=== PATIENT | female | born 2000 | race Caucasian/White ===

== ENCOUNTER 2022-08-22 11:45 | Outpatient (CLI) | payer BC, SELFPAY ==
--- NOTE | 2022-08-22 12:15 | CRLHL7_ITS ---
For Patients: As a result of the Century Cures Act, medical imaging exams and procedure reports are released immediately into your electronic medical record. You may view this report before your referring provider. If you have questions, please contact your health care provider. INDICATION: First trimester scan, establish dates. COMPARISON: None. TECHNIQUE: Real-time soto-scale imaging of the pelvis was performed. FINDINGS: Sonographic imaging demonstrates a single living intrauterine gestation. The embryo demonstrates a regular cardiac rate measuring 154 beats per minute. The embryo`s crown-rump length measurement of 1.3 cm corresponds to a gestational age of 7 weeks 4 days with a sonographic due date of April 06, 2023. There is a normal-appearing yolk sac measuring 2.6 mm. There are no gross abnormalities noted within the embryo at this early state of development. The placenta has not yet developed. The gestational sac has a normal appearance. Small subchorionic perigestational hemorrhage measuring 15 x 3 x 11 mm toward the left of midline. The amount of fluid within the sac appears appropriate for gestational age. The cervix is closed. The myometrium appears normal. The ovaries are of normal size. The right ovary measures 3.5 x 1.6 x 2.2 cm. The left ovary measures 4.3 x 2.7 x 3.5 cm. Small corpus luteum cyst of on the left measuring 3.1 x 2.5 x 3.1 cm there are no suspicious fluid collections noted in the cul-de-sac. IMPRESSION: Normal first trimester OB ultrasound exam. Gestational age calculated at 7 weeks 4 days with a sonographic due date of April 06, 2023. Small subchorionic hemorrhage toward the left of midline. Dictated by Salomon Quinn MD @ 08/22/2022 1:21:02 PM (Electronically Signed)
== END 2022-08-22 11:46 | disposition home or self-care (01) ==
LOC: US 11:45
PROVIDERS: PCP Advanced Practice Midwife; Visit Provider Advanced Practice Midwife
DX: Z34.91 Encounter for supervision of normal pregnancy, unspecified, first trimester (principal); O20.9 Hemorrhage in early pregnancy, unspecified; Z3A.01 Less than 8 weeks gestation of pregnancy
CPT/HCPCS: 76817; 84443; 86592; 86703; 86762; 86787; 86803; 86850; 86900; 86901; 87086; 87340

== ENCOUNTER 2022-11-14 12:37 | Outpatient (CLI) | payer BC, SELFPAY ==
--- NOTE | 2022-11-14 13:00 | CRLHL7_ITS ---
For Patients: As a result of the Century Cures Act, medical imaging exams and procedure reports are released immediately into your electronic medical record. You may view this report before your referring provider. If you have questions, please contact your health care provider. OB ULTRASOUND CLINICAL HISTORY: anatomy survey. THAD by LMP: 04/03/2023. GA: 20 w, 0 d. INDICATION: anatomy survey. FINDINGS: position: Vertex. Cervix: Visualized. Technique: Transabdominal. Length of closed cervix: 3.2 cm. Amniotic Fluid: 4.7 cm SDP (greater than/equal to: 2- less than 8 cm). SURVEY: Observed Structures Calvarium/Spine: Cerebellum: 2.0 cm, 20 w 2 d. Cisterna Magna: 6.9 mm. Nuchal Fold: 4.0 mm. Lateral Ventricle: 6.4 mm. CSP: Yes. Midline Falx: Yes. Choroid Plexus: Yes. Spine: Yes. Abdomen: Stomach: Yes. Abd Cord Insertion: Yes. Urinary Bladder: Yes. Kidneys: Yes. Diaphragm: Yes. Face: Nose/lips: Yes. Orbital view: Yes. Limbs: Upper Extremities: Yes. Lower Extremities: Yes. Hands: Yes. Feet: Yes. Vascular: Four-Chamber Heart: Yes. LVOT: Yes. RVOT: Yes. 3VV: Yes. 3VTV: Yes. BPD: 4.8 cm. 20 w 3 d, 66 percent. HC: 17.4 cm. 19 w 6 d, 39 percent. AC: 15.0 cm. 20 w 2 d, 53 percent. FL: 3.1 cm. 19 w 4 d, 29 percent. FL/AC: 20.7 percent. HC/AC Ratio: 1.16. Heart rate: 141 beats per minute. age by this US: 20 w 1 d. THAD by this US: 04/02/2023. EFW: 324 g. Weight: 0 lbs, 11 oz. Percentile by THAD: 44 percent. IMPRESSION: Single live intrauterine gestation. No gross anomalies visualized. profile is poorly seen. Zo Mcarthur M.D. Diagnostic/Breast Radiologist [employer] [email or web address] Transcribed: 11:34 am DW/Dictated by: Zo Mcarthur MD @ 11/15/2022 4:52:00 AM (Electronically Signed)
== END 2022-11-14 12:38 | disposition home or self-care (01) ==
LOC: US 12:37
PROVIDERS: Visit Provider Advanced Practice Midwife
DX: Z34.92 Encounter for supervision of normal pregnancy, unspecified, second trimester (principal); Z3A.20 20 weeks gestation of pregnancy
CPT/HCPCS: 76805

== ENCOUNTER 2022-11-21 10:43 | Outpatient (CLI) | payer BC, SELFPAY ==
--- NOTE | 2022-11-21 11:00 | CRLHL7_ITS ---
For Patients: As a result of the Century Cures Act, medical imaging exams and procedure reports are released immediately into your electronic medical record. You may view this report before your referring provider. If you have questions, please contact your health care provider. INDICATION: Follow-up profile COMPARISON: 11/14/2022 TECHNIQUE: Real-time soto-scale imaging of the pelvis was performed. FINDINGS: profile and longitudinal spine appear normal. heart rate 144 beats per minute. Single deepest pocket amniotic fluid 6.8 cm. Vertex position. IMPRESSION: Normal profile. Dictated by Avtar Saldivar MD @ 11/21/2022 12:07:43 PM (Electronically Signed)
== END 2022-11-21 10:44 | disposition home or self-care (01) ==
LOC: US 10:43
PROVIDERS: Visit Provider Advanced Practice Midwife
DX: Z34.90 Encounter for supervision of normal pregnancy, unspecified, unspecified trimester (principal); Z36.2 Encounter for other antenatal screening follow-up
CPT/HCPCS: 76816

== ENCOUNTER 2023-01-09 08:31 | Outpatient (CLI) | payer BC, SELFPAY | END 2023-01-09 08:32 | disposition home or self-care (01) | LOC: NFLDREF 08:32 | PROVIDERS: Visit Provider Advanced Practice Midwife | DX: Z34.93 Encounter for supervision of normal pregnancy, unspecified, third trimester (principal); Z3A.28 28 weeks gestation of pregnancy | CPT/HCPCS: 86592; 86850; J2791 ==

== ENCOUNTER 2023-01-16 07:44 | Outpatient (CLI) | payer BC, SELFPAY | END 2023-01-16 07:45 | disposition home or self-care (01) | PROVIDERS: Visit Provider Advanced Practice Midwife | DX: Z34.93 Encounter for supervision of normal pregnancy, unspecified, third trimester (principal); R73.09 Other abnormal glucose | CPT/HCPCS: 82951; 82952 ==

== ENCOUNTER 2023-02-09 16:56 | Outpatient (CLI) | payer BC, SELFPAY ==
[2023-02-09] VITALS (10 sets, daily range): BP systolic 120–134; BP diastolic 77–83; PULSE 93–120; TEMP 36.6–36.7; O2SAT 98–99
[2023-02-09 17:18] LABS: Appearance Urine Cloudy (Clear); Bilirubin Urine Negative (Negative); Blood Urine Trace-intact (Negative); Color Urine Yellow (Yellow); Glucose Urine Negative (Negative); Ketones Urine Negative (Negative); Leukocyte Esterase Urine 3+ (Negative); Nitrite Urine Negative (Negative); Protein Urine Negative (Negative); Specific Gravity Urine 1.015 (1.000-1.030); Urobilinogen Urine 0.2 (0.2-1.0); pH Urine 7.5 (5.0-8.5)
--- NOTE | 2023-02-09 18:06 | PM.OBLDTN ---
OB - Triage/Final Diagnosis Visit Information Date Seen: 02/09/23 Narrative: The patient is a 22 year old 1 para 0 at 32.3 weeks gestation by LMP, who presents with lower abdomen cramping since yesterday evening not improved with rest, hydration or position changes. She denies UTI symptoms or leaking fluid and is appreciating good movement. Upon cervical exam she was found to be 1cm/20/-3. Plan to recheck cervix in 2-3 hours for cervical exam. Waiting on UA results. No discharge noted with exam and she denies any unusual discharge. Reason for evaluation: threatened labor Evaluation Cervical dilation (cm): 1 Cervical effacement (%): 20 Laboratory results: Laboratory Tests 02/09/23 Range/Units 17:09 Urine Color Yellow (Yellow) Urine Appearance Cloudy A (Clear) Urine pH 7.5 (5.0-8.5) Ur Specific [place] 1.015 (1.000-1.030) Urine Protein Negative (Negative) Urine Glucose (UA) Negative (Negative) Urine Ketones Negative (Negative) Urine Blood Trace-intact A (Negative) Urine Nitrite Negative (Negative) Urine Bilirubin Negative (Negative) Urine Urobilinogen 0.2 (0.2-1.0) Ur Leukocyte Esterase 3+ A (Negative) Urine RBC Pending Urine WBC Pending Ur Squamous Epith Cells Pending Urine Bacteria Pending Vital signs: Vital Signs - 24 hr 02/09/23 17:19 02/09/23 17:20 Pulse Rate 93 Blood Pressure 127/77 Pulse Oximetry 99 Fetus (Single) Heart Rate Baseline: 135 Orthotic Practitioner Variability: Moderate (6-25) Monitor Accelerations: Present Monitor Decelerations: None Station: -3 Final Diagnosis (1) Risk of labor in third trimester: Status: Acute (2) Supervision of normal first : Status: Acute
[2023-02-09 18:17] LABS: Squamous Epithelial Cell Urine Moderate (None-Few); WBC Clumps Urine Few
[2023-02-09 18:18] LABS: Amorphous Sediment Urine Few; Bacteria Urine Many; Coarse Granular Casts Urine Few
[2023-02-09 20:12] LABS: Clue Cells >20% Clue Cells Seen (None Seen); Trichomonas No Trichomonas Seen (None Seen); Yeast Yeast Seen (None Seen)
[2023-02-09] MEDS: NIFEdipine 10 MG CAPSULE PO ×3 (20:36→21:06)
[2023-02-09] MEDS: BETAMETHASONE SOD PHOS/ACETATE 6 MG/ML ML 12 MG IM (20:44)
[2023-02-10 00:43] VITALS: PULSE 101; O2SAT 96
[2023-02-10] MEDS: metroNIDAZOLE 500 MG TABLET PO (01:10)
--- NOTE | 2023-02-10 01:55 | PC.OBNST ---
NST Note NST Note Start: 02/09/23 17:09 Freq: ONCE Status: Active Protocol: Document 02/10/23 01:05 CHASIDY (Rec: 02/10/23 01:55 CHASIDY [id number]) NST Note 1 Para (# of births) 0 EDC 04/03/23 Gestational Age In Weeks & Days 32 Weeks & 4 Days Patient Presented with Complaint(s) of Contractions/cramping Other Complaints Patient complained of cramping with contractions. Contractions stopped after nifedipine and rest. She is positive for BV and Yeast Reactive Yes Appropriate for Gestational Age Yes RN Kandi Mercado, RN Date 02/10/23 Reactive Yes Appropriate for Gestational Age Yes JOSE DANIEL Grant, JOSE DANIEL Date 02/10/23 OB NST charge Yes Complete NST Note via Write Note Yes The provider's electronic signature indicates the NST is reactive/appropriate for gestational age. *Note to provider: If an addendum is required, open the patient's chart and click on the note under the Nurse/Allied Health tab.
--- NOTE | 2023-02-10 02:10 | PM.OBLDTN ---
OB - Triage/Final Diagnosis Visit Information Date of evaluation: 02/10/23 Narrative: Goldie feels cramping has now decreased and she only feels some cramping when getting up to the bathroom. She denies any bleeding, leaking of fluid and baby is moving well. Reason for evaluation: threatened labor Comments/Additional reasons for admission: Discussed with patient discharging home with follow up this week in clinic. Will not recheck cervix as contractions have slowed and she is less painful. Reviewed signs and symptoms to report or return for, she verbalized understanding. Will start treatment for BV before discharge and send Rx to pharmacy for further dose. Rx also sent for yeast. Pt agrees to the plan. Evaluation Laboratory results: Laboratory Tests 02/09/23 02/09/23 Range/Units 19:42 17:09 Urine Color Yellow (Yellow) Urine Appearance Cloudy A (Clear) Urine pH 7.5 (5.0-8.5) Ur Specific [place] 1.015 (1.000-1.030) Urine Protein Negative (Negative) Urine Glucose (UA) Negative (Negative) Urine Ketones Negative (Negative) Urine Blood Trace-intact A (Negative) Urine Nitrite Negative (Negative) Urine Bilirubin Negative (Negative) Urine Urobilinogen 0.2 (0.2-1.0) Ur Leukocyte Esterase 3+ A (Negative) Urine RBC 5-10 A (0-2) Urine WBC 10-25 A (0-5) Urine WBC Clumps Few A (None) Ur Squamous Epith Cells Moderate A (None-Few) Amorphous Sediment Few A (None) Urine Bacteria Many A (None) Coarse Granular Casts Few A (None) Vaginal Trichomonas No Trichomonas Seen (None Seen) Vaginal Yeast Yeast Seen (None Seen) Vaginal Clue Cells >20% Clue Cells Seen (None Seen) Group B Strep DNA Pending Vital signs: Vital Signs - 24 hr 02/09/23 17:19 02/09/23 17:20 02/09/23 17:20 Temperature 98.1 F Pulse Rate 93 Blood Pressure 127/77 Pulse Oximetry 99 02/09/23 18:30 02/09/23 18:54 02/09/23 18:56 Temperature 98 F Pulse Rate 100 Blood Pressure 124/80 Pulse Oximetry 98 02/09/23 19:05 02/09/23 19:15 02/09/23 20:50 Temperature Pulse Rate 101 H 120 H 108 H Blood Pressure 120/78 123/82 134/81 Pulse Oximetry 02/09/23 21:08 02/09/23 22:13 02/10/23 00:43 Temperature Pulse Rate 109 H 112 H Blood Pressure 134/83 128/77 Pulse Oximetry 96 Fetus (Single) Heart Rate Baseline: 135 Monitor Accelerations: Present Monitor Decelerations: None Station: -3 Final Diagnosis (1) Risk of labor in third trimester: Status: Acute (2) Supervision of normal first : Status: Acute
[2023-02-10 15:18] LABS: Strep B DNA Probe Negative (Negative); Strep B Susceptibility Needed? No
== END 2023-02-10 01:10 | disposition home or self-care (01) ==
LOC: OB 02-10 00:55 → OB OUT 02-10 15:37
PROVIDERS: Visit Provider Advanced Practice Midwife
DX: O47.03 False labor before 37 completed weeks of gestation, third trimester (principal); Z3A.33 33 weeks gestation of pregnancy
CPT/HCPCS: 59025; 81003; 81015; 87081; 87086; 87210; 87653; 99213; A9270; J0702

== ENCOUNTER 2023-02-17 15:23 | Outpatient (CLI) | payer BC, SELFPAY ==
[2023-02-17] VITALS (21 sets, daily range): BP systolic 126–132; BP diastolic 75–88; PULSE 96–134; RESP 18; TEMP 37.3; O2SAT 96–99
[2023-02-17 16:02] LABS: Appearance Urine Slightly Cloudy (Clear); Bilirubin Urine Negative (Negative); Blood Urine Negative (Negative); Color Urine Yellow (Yellow); Glucose Urine Negative (Negative); Ketones Urine Negative (Negative); Leukocyte Esterase Urine 1+ (Negative); Nitrite Urine Negative (Negative); Protein Urine Negative (Negative); Urobilinogen Urine 0.2 (0.2-1.0)
[2023-02-17 16:20] LABS: Bacteria Urine Few; RBC Urine 0-2 (0-2); Squamous Epithelial Cell Urine Few (None-Few)
--- NOTE | 2023-02-17 16:47 | P.OBLDTN_ITS ---
OB - Triage/Final Diagnosis Visit Information Date Seen: 02/17/23 Date of evaluation: 02/17/23 Narrative: The patient is a 22 year old 1 para 0 at 33.4 weeks gestation by LMP, who presents with pink tinged discharge and cramping. Goldie was seen in triage last week for uterine cramping. At that time she was found to have yeast and clue cells by wet prep. She did also have mixed guerrero in a UC. She was treated with metronidazole and Monistat cream. She finish both of these therapies this morning. Yesterday she did have pink discharge times one without cramping. Today she had a repeat of this pink discharge and did start to have some cramping and back pain. When she presented she did have uterine irritability with a reactive tracing. A UA, fFn, and wet prep were collected. She did have a vaginal dose of Monistat this morning so the FFn will likely not be accurate. Her cervix was reexamined and found to be unchanged which is reassuring. There was a trace amount of brown discharge on the vaginal swab but none on the examining glove. No obvious discharge or fluids were noted on examination. I did consult with Dr. Davis and she recommended a dose of Nifedipine 10mg x1 for a tocolytic. Can consider sending a prescription for 10-20mg Q6hr PRN if necessary. We discussed that the plan of care may change if any of the labs are positive and that an underlying cause can be identified and treated. She is agreeable to this plan and questions were answered. Evaluation Cervical dilation (cm): 1 Cervical effacement (%): 30 Laboratory results: Laboratory Tests 02/17/23 Range/Units 15:50 Urine Color Yellow (Yellow) Urine Appearance Slightly Cloudy A (Clear) Urine pH 7.0 (5.0-8.5) Ur Specific [place] 1.020 (1.000-1.030) Urine Protein Negative (Negative) Urine Glucose (UA) Negative (Negative) Urine Ketones Negative (Negative) Urine Blood Negative (Negative) Urine Nitrite Negative (Negative) Urine Bilirubin Negative (Negative) Urine Urobilinogen 0.2 (0.2-1.0) Ur Leukocyte Esterase 1+ A (Negative) Urine RBC 0-2 (0-2) Urine WBC 2-5 (0-5) Ur Squamous Epith Cells Few (None-Few) Urine Bacteria Few A (None) Vital signs: Vital Signs - 24 hr 02/17/23 15:49 02/17/23 15:49 02/17/23 15:52 Temperature 99.1 F Pulse Rate 116 H Respiratory Rate 18 Blood Pressure 131/81 Pulse Oximetry 97 02/17/23 15:57 02/17/23 16:02 02/17/23 16:07 Temperature Pulse Rate Respiratory Rate Blood Pressure Pulse Oximetry 97 97 97 02/17/23 16:12 02/17/23 16:17 02/17/23 16:22 Temperature Pulse Rate Respiratory Rate Blood Pressure Pulse Oximetry 96 96 97 02/17/23 16:27 02/17/23 16:32 Temperature Pulse Rate Respiratory Rate Blood Pressure Pulse Oximetry 96 97 Fetus (Single) Heart Rate Baseline: 135 Kitchen Assistant Variability: Moderate (6-25) Monitor Accelerations: Present Monitor Decelerations: None Station: -3 Final Diagnosis (1) Uterine irritability: Status: Acute (2) Supervision of normal first : Status: Acute
[2023-02-17] MEDS: NIFEdipine 10 MG CAPSULE PO ×2 (16:55→17:45)
[2023-02-17 17:01] LABS: Clue Cells <20% Clue Cells Seen (None Seen); Trichomonas No Trichomonas Seen (None Seen); Yeast No Yeast Seen (None Seen)
[2023-02-17 17:21] LABS: Fetal Fibronectin* POSITIVE (Negative)
--- NOTE | 2023-02-17 18:18 | PC.NURSE ---
Patient presented to [facility] with complaints of light pink bleeding noted on toilet paper at home once on 02/16/23, and once today (02/17/23). Patient is 33.4 weeks gestation. Patient was seen last week and treated for Bacterial Vaginosis and vaginal yeast. Patient reports she completed her Metronidazole therapy this morning. Patient reports she first saw some light pink discharge on the toilet paper when wiping after voiding yesterday. Patient states she did not experience this again and thought to just watch it. Patient reports this happened again early this afternoon with light pink noted on the toilet paper when wiping. Patient denies bright red bleeding, leaking of fluids, or other vaginal discharge. Patient endorses normal movement. Patient does report feelings of constant cramping. UA with reflex was sent to lab. Provider ([facility] [place]) assessed patient at bedside and obtained FFN and Wet-Prep. Orders to administer Nifedipine for uterine irritability. Ongoing and maternal assessment until discharge from triage. JOSE DANIEL Ackerman 02/17/2023@1824.
--- NOTE | 2023-02-17 19:57 | P.OBLDTN_ITS ---
OB - Triage/Final Diagnosis Visit Information Date Seen: 02/17/23 Narrative: Goldie received 2 doses of Nifedipine. They did not seem to make a difference in her contractions or irritability. She denies a change in frequency or intensity of what she is feeling. A SVE was performed with informed consent and she was unchanged from her earlier exam. She was offered a IV fluid bolus but after a failed IV insertion attempt she opted for increasing oral hydration instead. Given her unchanged cervical exam a decision was made to discharge home and detailed labor instructions were reviewed. She has a regularly scheduled appointment in the clinic on Thursday of this week. A PRN prescription of Nifedipine was sent. Evaluation Cervical dilation (cm): 1 Cervical effacement (%): 30 Laboratory results: Laboratory Tests 02/17/23 02/17/23 Range/Units 16:47 15:50 Urine Color Yellow (Yellow) Urine Appearance Slightly Cloudy A (Clear) Urine pH 7.0 (5.0-8.5) Ur Specific [place] 1.020 (1.000-1.030) Urine Protein Negative (Negative) Urine Glucose (UA) Negative (Negative) Urine Ketones Negative (Negative) Urine Blood Negative (Negative) Urine Nitrite Negative (Negative) Urine Bilirubin Negative (Negative) Urine Urobilinogen 0.2 (0.2-1.0) Ur Leukocyte Esterase 1+ A (Negative) Urine RBC 0-2 (0-2) Urine WBC 2-5 (0-5) Ur Squamous Epith Cells Few (None-Few) Urine Bacteria Few A (None) Vaginal Trichomonas No Trichomonas Seen (None Seen) Vaginal Yeast No Yeast Seen (None Seen) Vaginal Clue Cells <20% Clue Cells Seen (None Seen) Fibronectin POSITIVE (Negative) Vital signs: Vital Signs - 24 hr 02/17/23 15:49 02/17/23 15:49 02/17/23 15:52 Temperature 99.1 F Pulse Rate 116 H Respiratory Rate 18 Blood Pressure 131/81 Pulse Oximetry 97 02/17/23 15:57 02/17/23 16:02 02/17/23 16:07 Temperature Pulse Rate Respiratory Rate Blood Pressure Pulse Oximetry 97 97 97 02/17/23 16:12 02/17/23 16:17 02/17/23 16:22 Temperature Pulse Rate Respiratory Rate Blood Pressure Pulse Oximetry 96 96 97 02/17/23 16:27 02/17/23 16:32 02/17/23 16:56 Temperature Pulse Rate 99 Respiratory Rate Blood Pressure 126/75 Pulse Oximetry 96 97 02/17/23 17:41 02/17/23 19:21 02/17/23 19:22 Temperature Pulse Rate 96 111 H Respiratory Rate Blood Pressure 131/77 132/88 Pulse Oximetry 99 02/17/23 19:27 02/17/23 19:32 02/17/23 19:37 Temperature Pulse Rate Respiratory Rate Blood Pressure Pulse Oximetry 98 98 98 02/17/23 19:42 02/17/23 19:47 02/17/23 19:52 Temperature Pulse Rate Respiratory Rate Blood Pressure Pulse Oximetry 98 98 97 Fetus (Single) Heart Rate Baseline: 135 Aerial Gunner Superintendent Variability: Moderate (6-25) Monitor Accelerations: Present Monitor Decelerations: None Station: -3 Final Diagnosis (1) Uterine irritability: Status: Acute (2) Supervision of normal first : Status: Acute
--- NOTE | 2023-02-17 21:24 | PC.OBNST ---
NST Note NST Note Start: 02/17/23 15:36 Freq: ONCE Status: Active Protocol: Document 02/17/23 21:18 GERARDOKenya (Rec: 02/17/23 21:19 MIRYAMLYNDON [id number]) NST Note 1 Para (# of births) 0 EDC 04/03/23 Gestational Age In Weeks & Days 33 Weeks & 4 Days Patient Presented with Complaint(s) of Contractions/cramping Other Complaints Pt comes to unit for consistent abdominal cramping/ contractions that are mild and labor rule out. Reactive Yes Appropriate for Gestational Age Yes JOSE DANIEL Hayes RN Date 02/17/23 Reactive Yes Appropriate for Gestational Age Yes JOSE DANIEL Ortiz Date 02/17/23 OB NST charge Yes Complete NST Note via Write Note Yes The provider's electronic signature indicates the NST is reactive/appropriate for gestational age. *Note to provider: If an addendum is required, open the patient's chart and click on the note under the Nurse/Allied Health tab.
== END 2023-02-17 20:50 | disposition home or self-care (01) ==
LOC: OB OUT 15:23 → OB 15:25
PROVIDERS: Visit Provider Advanced Practice Midwife
DX: Z34.00 Encounter for supervision of normal first pregnancy, unspecified trimester (principal); N85.8 Other specified noninflammatory disorders of uterus
CPT/HCPCS: 59025; 81003; 81015; 84112; 87086; 87210; 99213; A9270

== ENCOUNTER 2023-02-26 20:50 | Outpatient (CLI) | payer BC, SELFPAY ==
[2023-02-26] MEDS: NIFEdipine 10 MG CAPSULE PO (21:30)
[2023-02-26] MEDS: LACTATED RINGERS 1000 ML 1,000 ML 500 ML IV (21:31)
[2023-02-26 21:35] LABS: Appearance Urine Clear (Clear); Bilirubin Urine Negative (Negative); Blood Urine Negative (Negative); Color Urine Yellow (Yellow); Glucose Urine Negative (Negative); Ketones Urine Negative (Negative); Leukocyte Esterase Urine Trace (Negative); Nitrite Urine Negative (Negative); Protein Urine Negative (Negative); Urobilinogen Urine 0.2 (0.2-1.0); pH Urine 7.5 (5.0-8.5)
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
[2023-02-26 21:51] LABS: Bacteria Urine Few; Clue Cells <20% Clue Cells Seen (None Seen); RBC Urine 0-2 (0-2); Squamous Epithelial Cell Urine Few (None-Few); Trichomonas No Trichomonas Seen (None Seen); WBC Urine 0-2 (0-5); Yeast No Yeast Seen (None Seen)
[2023-02-26 22:12] VITALS: BP 134/90; PULSE 105
[2023-02-26 22:13] VITALS: PULSE 107; O2SAT 98
[2023-02-26 22:15] VITALS: TEMP 36.4
[2023-02-26 22:28] VITALS: BP 128/88; PULSE 111
--- NOTE | 2023-02-26 23:27 | PC.OBNST ---
NST Note NST Note Start: 02/26/23 20:56 Freq: ONCE Status: Active Protocol: Document 02/26/23 23:04 FIDEL (Rec: 02/26/23 23:06 FIDEL [id number]) NST Note 1 Para (# of births) 0 EDC 04/03/23 Gestational Age In Weeks & Days 34 Weeks & 6 Days High Risk Factors History of Labor/ Delivery Patient Presented with Complaint(s) of Contractions/cramping Reactive Yes Appropriate for Gestational Age Yes JOSE DANIEL Ortiz RNC Date 02/26/23 Reactive Yes Appropriate for Gestational Age Yes JOSE DANIEL Rodrigues CNM Date 02/26/23 OB NST charge Yes Complete NST Note via Write Note Yes The provider's electronic signature indicates the NST is reactive/appropriate for gestational age. *Note to provider: If an addendum is required, open the patient's chart and click on the note under the Nurse/Allied Health tab.
--- NOTE | 2023-03-19 14:51 | PC.OBNST ---
NST Note NST Note Start: 02/26/23 20:56 Freq: ONCE Status: Discharge Protocol: Document 02/26/23 23:04 KARTHIKEYANRae (Rec: 02/26/23 23:06 FIDEL [id number]) NST Note 1 Para (# of births) 0 EDC 04/03/23 Gestational Age In Weeks & Days 34 Weeks & 6 Days High Risk Factors History of Labor/ Delivery Patient Presented with Complaint(s) of Contractions/cramping Reactive Yes Appropriate for Gestational Age Yes JOSE DANIEL Ortiz RNC Date 02/26/23 Reactive Yes Appropriate for Gestational Age Yes JOSE DANIEL Rodrigues CNM Date 02/26/23 OB NST charge Yes Complete NST Note via Write Note Yes The provider's electronic signature indicates the NST is reactive/appropriate for gestational age. *Note to provider: If an addendum is required, open the patient's chart and click on the note under the Nurse/Allied Health tab.
== END 2023-02-26 22:55 | disposition other institution (70) ==
LOC: OB OUT 20:50 → OB 20:51
PROVIDERS: Visit Provider Advanced Practice Midwife
DX: O09.213 Supervision of pregnancy with history of pre-term labor, third trimester (principal); Z3A.34 34 weeks gestation of pregnancy
CPT/HCPCS: 59025; 81003; 81015; 87086; 87210; 99213; A9270; J7120

== ENCOUNTER 2023-02-26 22:44 | Outpatient (CLI) | payer BC, SELFPAY | END 2023-02-26 22:45 | disposition home or self-care (01) | LOC: AMB 03-06 10:40 | PROVIDERS: Visit Provider Family Medicine | DX: O60.00 Preterm labor without delivery, unspecified trimester (principal) | CPT/HCPCS: A0425; A0427 ==

== ENCOUNTER 2023-03-02 12:00 | Outpatient (CLI) | payer BC, SELFPAY ==
[2023-03-02 12:32] VITALS: BP 115/65; PULSE 108; RESP 16; TEMP 37.2
--- NOTE | 2023-03-02 12:34 | PM.OBLDTN ---
OB - Triage/Final Diagnosis Visit Information Time Seen by Provider: 12:34 Date Seen: 03/02/23 Date of evaluation: 03/02/23 Narrative: The patient is a 22 year old 1 para 0 at 35.3 weeks gestation by LMP. She was seen a few days ago at 34.6 weeks and noted to be dilated to 3/70/0. She was transferred to [facility] r/t the availability of a NICU, and discharged home the following day unchanged. She was given a script for nifedapine at that time to use as needed for contractions. She called today stating she lost her mucus plug yesterday, and has noted some menstrual like cramps and contractions since, and feels this is getting stronger. When seen a few days ago, she was assessed for vaginal and bladder infections, both of which were negative. She does have a previous +FFN on 02/17, however was done on the final day of yeast infection treatment and w/ small amount of old blood, and may not have been accurate. She also reports betamethasone at 32 weeks. Her cervix today is relatively unchanged, 3/80/0. In the 22 minutes she has been on the monitor, she has had 1 contraction which she did not feel. We reviewed the options of repeating recent negative tests for infection, though they are likely to remain negative. We also reviewed the option for continued monitoring X 1 hr and a repeat SVE. She declines and will return home at this time. We reviewed comfort measures, including heat on her back, warm bath, using her nifedapine if desired. We reviewed at this time we would not stop labor. Reviewed labor precautions, when to return. She is aware she can also return if she has further concerns. FHTs 135, moderate variability, accels present, no decels. 1 ctx. Reactive NST Reason for evaluation: threatened labor Evaluation Cervical dilation (cm): 3 Cervical effacement (%): 80 Vital signs: Vital Signs - 24 hr 03/02/23 12:32 Pulse Rate 108 H Blood Pressure 115/65 Final Diagnosis (1) contractions: Status: Acute (2) Supervision of normal first : Status: Acute
--- NOTE | 2023-03-02 12:56 | PC.OBNST ---
NST Note NST Note Start: 03/02/23 12:04 Freq: ONCE Status: Active Protocol: Document 03/02/23 12:42 SABRINAYH (Rec: 03/02/23 12:56 RAMIRO [id number]) NST Note 1 Para (# of births) 0 EDC 04/03/23 Gestational Age In Weeks & Days 35 Weeks & 3 Days Patient Presented with Complaint(s) of Contractions/cramping Reactive Yes Appropriate for Gestational Age Yes RN Demetra Simon RN Date 03/02/23 Reactive Yes Appropriate for Gestational Age Yes JOSE DANIEL Stewart RN Date 03/02/23 OB NST charge Yes Complete NST Note via Write Note Yes The provider's electronic signature indicates the NST is reactive/appropriate for gestational age. *Note to provider: If an addendum is required, open the patient's chart and click on the note under the Nurse/Allied Health tab.
== END 2023-03-02 12:42 | disposition home or self-care (01) ==
LOC: OB OUT 12:00 → OB 12:01
PROVIDERS: Visit Provider Advanced Practice Midwife
DX: O47.1 False labor at or after 37 completed weeks of gestation (principal); Z3A.34 34 weeks gestation of pregnancy
CPT/HCPCS: 59025; G0463

== ENCOUNTER 2023-03-11 17:41 | Outpatient (CLI) | payer BC, SELFPAY ==
[2023-03-11] VITALS (22 sets, daily range): BP systolic 126; BP diastolic 81; PULSE 91–117; RESP 16; TEMP 36.8; O2SAT 96–99
--- NOTE | 2023-03-11 20:55 | PC.OBNST ---
NST Note NST Note Start: 03/11/23 17:47 Freq: ONCE Status: Active Protocol: Document 03/11/23 20:10 MIRYAMLYNDON (Rec: 03/11/23 20:54 MIRYAMLYNDON [id number]) NST Note 1 Para (# of births) 0 EDC 04/03/23 Gestational Age In Weeks & Days 36 Weeks & 5 Days Patient Presented with Complaint(s) of Observation after an injury If Observation after an injury, describe Pt fell against a saddle chair at work and the metal bar hit her abdomen Reactive Yes Appropriate for Gestational Age Yes RN Selvin Hayes RN Date 03/11/23 Reactive Yes Appropriate for Gestational Age Yes RN Demetra Simon RN Date 03/11/23 OB NST charge Yes Complete NST Note via Write Note Yes The provider's electronic signature indicates the NST is reactive/appropriate for gestational age. *Note to provider: If an addendum is required, open the patient's chart and click on the note under the Nurse/Allied Health tab.
== END 2023-03-11 20:07 | disposition home or self-care (01) ==
LOC: OB OUT 17:41 → OB 17:41
PROVIDERS: Visit Provider Advanced Practice Midwife
DX: O26.93 Pregnancy related conditions, unspecified, third trimester (principal); S29.9XXS Unspecified injury of thorax, sequela; Z3A.36 36 weeks gestation of pregnancy
CPT/HCPCS: 59025; G0463

== ENCOUNTER 2023-03-13 11:16 | Outpatient (CLI) | payer BC, SELFPAY ==
[2023-03-14 13:39] LABS: Strep B DNA Probe Negative (Negative)
[2023-03-14 15:39] LABS: Strep B Susceptibility Needed? No
== END 2023-03-13 11:17 | disposition home or self-care (01) ==
LOC: NFLDREF 11:17
PROVIDERS: Visit Provider Advanced Practice Midwife
DX: Z34.90 Encounter for supervision of normal pregnancy, unspecified, unspecified trimester (principal)
CPT/HCPCS: 87081; 87653

== ENCOUNTER 2023-03-17 08:05 | Inpatient (IN) | payer BC, SELFPAY ==
[2023-03-17] VITALS (73 sets, daily range): BP systolic 92–148; BP diastolic 54–95; PULSE 86–150; RESP 20; TEMP 36.6–37.3; O2SAT 96–100; BMI 33.3
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
[2023-03-17 08:08] LABS: Amnisure Rom* POSITIVE
[2023-03-17 08:32] LABS: Hematocrit 36.6 % (33.0-51.0); Hemoglobin* 11.9 gm/dL (12.0-16.0); Mean Corpuscular HGB Conc 33 gm/dL (32-36); Mean Corpuscular Hemoglobin 29 pg (26-34); Mean Corpuscular Volume 88 fL (80-100); Platelet Count* 201 K/uL (140-440); Red Blood Count 4.16 m/uL (4.00-5.20); White Blood Count* 13.09 K/uL (4.50-11.00)
[2023-03-17 08:37] LABS: Slide Review Reflex No
[2023-03-17 08:49] LABS: Alanine Aminotransferase* 17 U/L (4-35); Aspartate Amino Transferase* 21 U/L (12-35); Blood Urea Nitrogen* 8 mg/dL (5-24); Creatinine* 0.4 mg/dL (0.5-1.5); Estimated Glomerular Filt Rate 143 ml/min
[2023-03-17 09:12] LABS: Total Protein Urine 59 mg/dL
[2023-03-17 09:13] LABS: Creatinine Urine 65.5 mg/dL
[2023-03-17] MEDS: LACTATED RINGERS 1000 ML 1,000 ML 125 ML IV ×2 (10:22→13:46)
[2023-03-17] MEDS: OXYTOCIN 30 unit/500 ML in NS 30 UNIT/500 ML BAG IVPB (10:24)
[2023-03-17] MEDS: LIDOCAINE 2% (PF) 5 ML VIAL EPIDURAL (13:26)
[2023-03-17] MEDS: ROPIVACAINE 0.2 % PF 10 ML INJ 20 MG EPIDURAL (13:30)
[2023-03-17] MEDS: ROPIVACAINE 0.2% 100 ml 100 ML 12 MG EPIDURAL (13:34)
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
[2023-03-17 15:03] LABS: Total Protein Urine < 5 mg/dL
[2023-03-17 15:05] LABS: Creatinine Urine 73.8 mg/dL
[2023-03-17] MEDS: LIDOCAINE 1 % PF 30 ML INJECTION (19:25)
--- NOTE | 2023-03-17 20:28 | W.PM.OBVAGDE ---
OB Procedure Vag Delivery Mother Details Mother Details: The patient is a 22 year-old, 1, now Para 1, admitted on 03/17/23 at 37.4 weeks gestation. : 1 Para: 1 Weeks Gestation: 37.4 Admission Date: 03/17/23 Additional Details Amniotic Membrane Status: SROM Amniotic Membrane Rupture Date: 03/17/23 Amniotic Membrane Rupture Time: 06:10 Amniotic Membrane Fluid Description: Clear Analgesia/Anesthesia Type: Epidural and Local Waterbirth: No Pitcoin: Yes Intrapartal Events: None Delivery augmentation: pitocin Labor Onset: 13:00 Complete: 18:10 Pushin:10 Heart: heart tones during second stage: 145, min - mod variability. Early and variable decels noted w/ pushing at times. Delivery Details Delivery Date: 03/17/23 Delivery Time: 19:18 Route of delivery: Infant Gender: Male Viability: Alive; Heart Rate Present Position at Delivery: OA Delivery Details: Goldie noted increased pressure, noted to be a rim, +2 station. Labored down for a bit, and noted to be complete. Pushing with good effort in semi fowlers. ? Spontaneous vaginal?delivery?at 191 of?a viable?male .??Delivered in vertex OA position.??Shoulders delivered easily.? Spontaneous cry noted.??Infant placed on maternal abdomen.??Cord?was clamped and cut after a a few minute delay. Infant noted to be having difficulty breathing, so cord clamped and cut and taken over to warmer for further assessment.? Shoulder dystocia: no? Nuchal cord: no? Meconium stained?fluid: no? Water : no? ? ? 6 at 1 minute and 7 at 5 minutes and 8 at 10 minutes.? ? Placenta delivered spontaneously and?complete?at 192 with a?3 vessel?cord.?? Bleeding controlled with fundal massage and?pitocin?for AMTSL.? ? Mother and were stable after?delivery.? ? Lacerations:? Increased bleeding noted to be from multiple lacerations. U shaped second degree extending up right and left sides noted. This was repaired with a 3-0 and 4-0 Vicryl. Right side, periurethral noted deep in the tissue, bleeding profusely. This was repaired with a 4-0 Vicryl. Even after repair, all lacerations noted to be very oozy, and pressure held to help stop. RNs aware if continues, to notify CNM and will place vag packing. ? Bleeding?post?delivery?was: minimal. ?The fundas was firm to palpation.? Blood loss: 900?mL, mostly from lacerations. Blood loss measurement type: QBL? ? ? Sponge,?lap?and needles counts are correct.? Mother and were stable after?delivery.? 1 Minute Interval Total Score: 6 5 Minute Interval Total Score: 7 10 Minute Interval Total Score: 8 Additional Details Shoulder Dystocia: No Placenta Delivery Time: 19:26 Placental Delivery Description: Spontaneous Delivery repair: Vicryl Procedure Done: Global Blood Loss: 900 Laceration: Perineal - 2nd Degree Blood Loss Measurement Type: QBL Bakri Used: No Sponge/Need Count Correct: Yes Cord Vessel Description: 3 Vessels Event Summary Status: Mother and infant were stable after delivery. Disposition: floor
[2023-03-17] MEDS: LACTATED RINGERS 1000 ML 1,000 ML 1125 ML IV (21:44)
[2023-03-18 00:16] VITALS: BP 110/71; PULSE 126; RESP 16; TEMP 36.8; O2SAT 96
[2023-03-18] MEDS: IBUPROFEN 600 MG TABLET PO ×4 (00:24→21:07)
[2023-03-18 01:06] LABS: Hemoglobin* 9.2 gm/dL (12.0-16.0)
[2023-03-18] MEDS: ACETAMINOPHEN 500 MG TABLET 1000 MG PO (05:05)
[2023-03-18 05:23] VITALS: BP 114/67; PULSE 104; RESP 16; TEMP 36.4; O2SAT 96
[2023-03-18 07:06] LABS: Hemoglobin* 8.4 gm/dL (12.0-16.0)
[2023-03-18] MEDS: DOCUSATE SODIUM 100 MG CAPSULE PO (07:40)
[2023-03-18] MEDS: FERROUS SULFATE 325 MG TABLET PO (07:40)
[2023-03-18 07:41] VITALS: BP 111/77; PULSE 104; RESP 16; TEMP 36.4; O2SAT 96
--- NOTE | 2023-03-18 07:47 | PM.OBPNVD1 ---
OB - PN:Subj Subjective Date Seen: 03/18/23 Narrative: Goldie is a 22 y.o. who was admitted to L & D for spontaneous onset of labor. ?She had an uncomplicated NVD. Labor was complicated by diagnosis of Gestational Hypertension.?The patient feels well. ?The pain is well controlled with current medications. ?She has no new complaints. ?She is breast feeding and reports things are going well.? the patient has done well.? Vitals have been stable, BP has been normotensive since delivery.? She has remained afebrile.? Has a good appetite, is tolerating a general diet. ?She is voiding without difficulty.? She is passing gas and has not had a bowel movement.? She is ambulating and denies any dizziness.? Has small amount of rubra lochia. Hgb is 8.4 this morning, ordered iron supplement every other day. OB - PN: Obj Exam Physical Exam: Vital signs: Temp Pulse Resp BP Pulse Ox O2 Del Method 97.6 F 104 H 16 111/77 96 Room Air 03/18/23 07:41 03/18/23 07:41 03/18/23 07:41 03/18/23 07:41 03/18/23 07:41 03/18/23 07:41 Narrative: GENERAL APPEARANCE:? normal affect, alert, no distress MOOD:? appropriate CHEST:? clear to auscultation HEART:? regular rate and rhythm ABDOMEN:? soft, non-tender the uterine fundus is at Umbilicus, Midline and is appropriate for the stage of recovery. PERINEUM:? mild edema of the perineum, there is a Perineal Laceration,?2nd degree, that is healing well. EXTREMITIES:? normal and trace edema OB - PN: Obj Data Labs Labs: Laboratory Results - last 24 hr 03/17/23 03/17/23 03/17/23 07:53 08:19 08:30 WBC 13.09 H RBC 4.16 Hgb 11.9 L Hct 36.6 MCV 88 MCH 29 MCHC 33 Plt Count 201 BUN 8 Creatinine 0.4 L Estimated Creat Clear 190.50 Estimated GFR 143 AST 21 ALT 17 Urine Creatinine 65.5 Protein/Creatinin Ratio 0.90 H Urine Total Protein 59 Membrane Rupture POSITIVE 03/17/23 03/18/23 03/18/23 14:20 01:00 06:48 WBC RBC Hgb 9.2 L 8.4 L Hct MCV MCH MCHC Plt Count BUN Creatinine Estimated Creat Clear Estimated GFR AST ALT Urine Creatinine 73.8 Protein/Creatinin Ratio 0.00 Urine Total Protein < 5 Membrane Rupture OB - PN: A/P Delivery Assessment and Plan (1) care and examination immediately after delivery: Status: Acute (2) Anxiety and depression: Status: Acute (3) Gestational hypertension: Problem details: P/c ratio was 0.0 on repeat Status: Acute (4) Lactating mother: Status: Acute Plan day: 1 Plan: routine care Comments: Routine care Gestational hypertension based on elevated BP in labor with normal labs. Continue to monitor BP. Anemia, Hgb 8.4 today; iron ordered every other day. Pt asymptomatic Lactating mother. May see if desired. Anticipate discharge tomorrow.
[2023-03-18 13:00] VITALS: BP 110/71; PULSE 104; RESP 16; TEMP 36.8
--- NOTE | 2023-03-18 15:06 | PC.NURSE ---
Nurse obtained Rhophylac at 1142 on 03/18/23, and administered at 1428 on 03/18/23 IM in left thigh. Administration record timed out, so nurse was unable to document administration correctly. Patient's name, , and blood type verified prior to administration.
--- NOTE | 2023-03-18 16:08 | PM.ANPOST ---
Post Anesthesia Note Post Anesthesia Note Patient seen: Inpatient Respiratory Status: adequate Cardiovascular Status: adequate Mental Status: baseline Pain: adequate Temp: baseline Anesthetic awareness: N/A Complications: none Follow care: none
[2023-03-18 16:38] VITALS: BP 109/70; PULSE 98; RESP 16; TEMP 37.1
[2023-03-18 19:31] VITALS: BP 119/79; PULSE 120; RESP 16; TEMP 36.8; O2SAT 97
[2023-03-19 01:21] VITALS: BP 121/77; PULSE 107; RESP 16; TEMP 37.1; O2SAT 96
[2023-03-19] MEDS: IBUPROFEN 600 MG TABLET PO ×2 (02:47→09:02)
[2023-03-19 05:11] VITALS: BP 113/80; PULSE 100; RESP 16; TEMP 37.1; O2SAT 97
[2023-03-19 07:45] VITALS: BP 118/81; PULSE 108; RESP 18; TEMP 37.1; O2SAT 98
[2023-03-19] MEDS: DOCUSATE SODIUM 100 MG CAPSULE PO (09:02)
--- NOTE | 2023-03-19 09:15 | PM.OBDSVD1 ---
DS: Providers Provider Date Seen: 03/19/23 Date of admission: 03/17/23 08:05 Primary care physician: Not a Local Provider Admitting Clinician: Clair Obrien CNM Attending Physician on discharge: Clair Obrien CNM Date of Discharge: 03/19/23 DS: Diagnosis Discharge Diagnosis (1) care following vaginal delivery: Status: Acute (2) Lactating mother: Status: Acute (3) Gestational hypertension: Status: Acute Problem details: P/c ratio was 0.0 on repeat Exam Narrative: Exam Narrative: GENERAL APPEARANCE:? normal affect, alert, no distress? MOOD:? appropriate? CHEST:? clear to auscultation and percussion? HEART:? regular rate and rhythm? ABDOMEN:? soft, non-tender the uterine fundus is 2 cm Below Umbilicus, Midline and is appropriate for the stage of recovery. ? PERINEUM:? mild edema of the perineum, there is a 2nd degree that is healing well.? EXTREMITIES:? normal and no edema? Patient has no complaints? No active bleeding?? Doing well? She is requesting discharge home.? Const: Vital Signs, click to edit/add: Vital Signs - 24 hr 03/18/23 13:00 03/18/23 16:38 03/18/23 19:31 Temperature 98.2 F 98.7 F 98.3 F Pulse Rate [Left P ulse Oximeter] 104 H 98 120 H Respiratory Rate 16 16 16 Blood Pressure [Le ft Arm] 110/71 109/70 119/79 Pulse Oximetry 97 Oxygen Delivery Me thod Room Air Room Air Room Air 03/19/23 01:21 03/19/23 05:11 03/19/23 07:45 Temperature 98.7 F 98.7 F 98.7 F Pulse Rate [Left P ulse Oximeter] 107 H 100 108 H Respiratory Rate 16 16 18 Blood Pressure [Le ft Arm] 121/77 113/80 118/81 Pulse Oximetry 96 97 98 Oxygen Delivery Me thod Room Air Room Air Room Air Documenting provider has reviewed patient's vital signs: yes OB - DS: Summary Hospital Course Hospital Course: The patient is a 22 year old G 1 P 1 at 37.4 weeks gestation that was admitted to the Center on 03/17/23 for SROM. She had an uncomplicated vaginal delivery. she did develop gestational hypertension during labor. Her blood pressures have been normal since delivery. She delivered a viable male infant. She is breast feeding and feels it is going ok but baby is sleepy at the breast so they are supplementing with formula. the patient has done well. The patient feels well.? The pain is well controlled with current medications.? She has no new complaints.? Urinary output is adequate and she is voiding without difficulty.? Has a good appetite, is tolerating a general diet, is passing flatus, and has not had a bowel movement.? Has small amount of rubra lochia.? She is ambulating well.?She is unsure what she wants to do for birthcontrol. Reviewed options that compatible with . She is being sent home with a blood pressure cuff and instructed to check her blood pressure twice a day. Peripartum Data delivery method: Vaginal Laceration description: Perineal - 2nd Degree Episiotomy description: None complications: none [place] Infant Gender: Male Discharge Plan: Home Status at Discharge Functional status at discharge: independent ambulation Overall status at discharge: patient is progressing back to baseline Time Spent with Patient Time attestation: Total time spent providing and/or coordinating discharge services: Discharge Plan Discharge Disposition: Home, Self-Care Date of Admission: 03/17/23 08:05 Attending Provider on Discharge: Rosalva Schumacher Primary Care Provider: Provider,Not a Local Condition: Stable Anticipated Discharge Date/Time: 03/19/23 11:00 Discharge Medications: New docusate sodium 100 mg Capsule 100 mg PO DAILY Qty: 60 0RF Rx Instructions: Take 1-2 tablets daily as needed for constipation. ferrous sulfate 325 mg (65 mg iron) Tablet 325 mg PO Q48H Qty: 60 0RF ibuprofen 600 mg Tablet 600 mg PO Q6H PRNQty: 60 0RF Continued Classic 28 mg iron- 800 mcg tablet 1 tab PO DAILY Discharge Orders: Discharge Order (Routine); Ordered 03/19/23 Ordered By: Rosalva Schumacher Patient Education: OB High Blood Pressure DC, OB Over the Counter Medication Information, OB Vaginal/Breast Feeding Additional Instructions: Discharge instructions were reviewed with the patient including signs and symptoms of infection and home going medications.? Lifting Restrictions: 20 pounds for 6? weeks? ?? Do not drive while taking narcotic pain meds.? Off Work or School for 6 weeks.? Check you blood pressure at home 2 twice a day. ?? Symptoms to report to doctor:? -Bleeding that saturates more than one pad per hour? -Passing clots larger than the size of a golf ball? -Pain not relieved by prescribed medication? -Fever above 100.4 degrees Fahrenheit? -A foul vaginal odor? -Difficulty in emotions, mood and functions? -Thoughts of hurting yourself and/or ? -Painful, reddened area in your breast? -Any drainage, redness or tenderness in your IV/epidural site? -Severe headache that doesn't improve after taking medications? -Changes in vision, including temporary loss of vision, blurred vision, and/or light sensitivity? -Upper abdominal pain (usually under ribs on the right side)? -Decrease in urination or painful, frequent urinating? -Chest pain? -Shortness of breath? -Tenderness or pain with redness and/swelling in the calf(s) of your leg? ?? 1. 5-7 days nurse visit:? blood pressure check.? 2. 2-week visit: discuss infant feeding/care concerns, review control options and screen for anxiety/depression.? 3. 6-week visit for an annual exam.? ?? consultation services are available to all mothers and babies for the first year after delivery.? To make an appointment, please call [phone].? Activity Level: Activity as Tolerated Discharge Diet: Regular Follow Up Appointments: [facility] [Provider Group] Provider,Not a Local [Primary Care Provider] - Forms: [employer]th Info Instructions Discharge Comments: Patient left ambulatory. Respirations were even and unlabored with no signs or symptoms of acute distress.
== END 2023-03-19 11:48 | disposition home or self-care (01) | DRG 560 ==
LOC: OB OUT 08:06 → OB 08:08
PROVIDERS: Admitting Provider Advanced Practice Midwife; Visit Provider Advanced Practice Midwife
DX: O13.4 Gestational [pregnancy-induced] hypertension without significant proteinuria, complicating childbirth (principal); O70.1 Second degree perineal laceration during delivery; O99.344 Other mental disorders complicating childbirth; F32.A Depression, unspecified; F41.9 Anxiety disorder, unspecified; Z3A.37 37 weeks gestation of pregnancy; Z37.0 Single live birth; O90.81 Anemia of the puerperium; Z78.9 Other specified health status; O26.893 Other specified pregnancy related conditions, third trimester; Z67.11 Type A blood, Rh negative
CPT/HCPCS: 01967; 36415; 82565; 82570; 84112; 84156; 84450; 84460; 84520; 85018; 85027; 85461; A9270; J2001; J2371; J2791; J2795; J7120

== ENCOUNTER 2025-02-10 12:38 | Outpatient (CLI) | payer BC, SELFPAY ==
--- NOTE | 2025-02-10 13:00 | CRLHL7_ITS ---
For Patients: As a result of the Century Cures Act, medical imaging exams and procedure reports are released immediately into your electronic medical record. You may view this report before your referring provider. If you have questions, please contact your health care provider. LMP: 12/08/2024. THAD by LMP: 09/14/2025. GA: 9w, 1d. INDICATION: Dating and viability. CRL: 2.3 cm, 9w 0d. THAD 09/15/2025. FHR: 183 bpm. GESTATIONAL SAC: 3.7 cm, appears within normal limits. YOLK SAC: 3.3 mm, appears within normal limits. RIGHT OVARY: Within normal limits, 3.9 x 3.2 x 3.1, CL. LEFT OVARY: Within normal limits, 2.6 x 1.8 x 1.9 cm. IMPRESSION: 1. Single living intrauterine measures 9 weeks 0 days with a sonographic due date 09/15/2025. 2. heart rate 183 beats per minute. 3. Subchorionic hemorrhage measures 1.9 x 0.5 x 1.1 cm. Avtar Saldivar M.D. Diagnostic Radiologist [email or web address] bM/Dictated by: Avtar Saldivar MD @ 02/10/2025 3:01:00 PM (Electronically Signed)
== END 2025-02-10 12:39 | disposition home or self-care (01) ==
LOC: US 12:39
PROVIDERS: Visit Provider Midwife
DX: O20.9 Hemorrhage in early pregnancy, unspecified (principal); Z3A.09 9 weeks gestation of pregnancy
CPT/HCPCS: 76817

== ENCOUNTER 2025-02-10 13:48 | Outpatient (CLI) | payer BC, SELFPAY | END 2025-02-10 13:49 | disposition home or self-care (01) | PROVIDERS: Visit Provider Midwife | DX: Z34.81 Encounter for supervision of other normal pregnancy, first trimester (principal); Z3A.09 9 weeks gestation of pregnancy | CPT/HCPCS: 82565; 82570; 83020; 83021; 84156; 84443; 84450; 84460; 84520; 84550; 85660; 86703; 86704; 86706; 86762; 86780; 86787; 86803; 86850; 86900; 86901; 87086; 87340; 87491; 87591 ==